=== PATIENT | female | born 1995 | race African-American/Black ===

== ENCOUNTER 2017-03-06 15:59 | Emergency (ER) | payer OTHER ==
[2017-03-06 18:25] VITALS: BP 121/69
== END 2017-03-06 18:38 | disposition home or self-care (01) ==
LOC: ED 15:59
DX: N12 Tubulo-interstitial nephritis, not specified as acute or chronic (principal); R19.7 Diarrhea, unspecified; R11.2 Nausea with vomiting, unspecified; R51 Headache; R07.89 Other chest pain
CPT/HCPCS: J0696; J1885; J7030